=== PATIENT | female | born 1935 | race African-American/Black ===

== ENCOUNTER 2018-04-23 07:20 | Emergency (ER) | payer MEDICARE, OTHER ==
[~2018-04-23] VITALS: Ht 167.6 cm; Wt 85.0 kg
[~2018-04-23 07:20] MED LIST: ASPI-1159 PO; ATEN100T PO; ATOR40TA70 PO; CALC-30 PO; FURO-152 PO; GLUC15006 PO; HYDR100T26 PO; LEVO125T8 PO; LOSA100T14 PO; MULT-1146 PO; NIAC500T2 PO; OCD PO; OMEG1CAP66 PO; TIOT18CA3 IH
[2018-04-23] MEDS ORDERED: NITROGLYCERIN 0.4MG TABLET SL SL PRN (08:00)
[2018-04-23] MEDS ORDERED: ASPIRIN 325MG EC TABLET PO ONE (08:00)
[2018-04-23 08:21] LABS: HEMATOCRIT. 25.6 % (36.0-48.0); HEMOGLOBIN. 7.9 g/dL (12.0-16.0); MEAN CORPUSCULAR HEMOGLOBIN 24.4 pg (28.0-32.0); MEAN CORPUSCULAR VOLUME 78.9 fL (81.0-99.0); MEAN PLATELET VOLUME 8.7 fl (7.4-10.4); PLATELET 228 x1000/uL (130-400); RED BLOOD CELL COUNT 3.24 mill/uL (4.2-5.4); RED CELL DISTRIBUTION WIDTH 17.4 % (11.6-14.6)
[2018-04-23 08:29] LABS: CHLORIDE 105 mEq/L (98-107)
[2018-04-23 08:33] LABS: ETHANOL BLOOD < 10 mg/dL
[2018-04-23 08:43] LABS: D-DIMER 1.95 mg/L FEU (<0.50); INR 1.1; PROTHROMBIN TIME 11.3 sec (9.4-11.6)
[2018-04-23 09:11] LABS: BG BASE EXCESS 4.1 mmol/L (-2.0-2.0); BG CARBOXYHEMOGLOBIN 0.9 % (0.5-1.5); BG DEOXYHEMOGLOBIN 3.5 % (0.0-5.0); BG FRACTION INSPIRED OXYGEN 28; BG HCO3 ACT 31.2 mmol/L (22.0-26.0); BG METHEMOGLOBIN 0.2 % (0.0-1.5); BG OXYGEN SATURATION 96.5 % (92.0-98.5); BG OXYHEMOGLOBIN 95.4 % (94.0-97.0); BG PCO2 62.9 mmHg (35.0-45.0); BG PH 7.314 (7.350-7.450); BG PO2 90.6 mmHg (75.0-100.0); BG SAMPLE SITE RIGHT RADIAL; BG TOTAL HEMOGLOBIN 8.7 g/dL (12.0-18.0); BG VENT MODE NASAL CANNULA
[2018-04-23 10:14] LABS: PLATELET ESTIMATE NORMAL
[2018-04-23 10:40] LABS: CLARITY URINE CLOUDY (CLEAR); COLOR URINE YELLOW (YELLOW); KETONES URINE NEGATIVE (NEGATIVE); LEUKOCYTE ESTERASE URINE TRACE (NEGATIVE); NITRITE URINE NEGATIVE (NEGATIVE); OCCULT BLOOD URINE 3+ (NEGATIVE); PROTEIN URINE 4+ (NEGATIVE); SPECIFIC GRAVITY URINE 1.018 (1.005-1.030); UROBILINOGEN URINE 0.2 E.U./dL (0.2-1.0)
[2018-04-23 10:59] LABS: *AMPHETAMINES SCREEN URINE NEGATIVE (NEGATIVE); *BARBITURATES SCREEN URINE NEGATIVE (NEGATIVE); *BENZODIAZEPINES SCREEN URINE NEGATIVE (NEGATIVE); *COCAINE SCREEN URINE NEGATIVE (NEGATIVE)
[2018-04-23 11:00] LABS: CANNABINOID URINE SCREEN NEGATIVE (NEGATIVE); METHADONE URINE SCREEN NEGATIVE (NEGATIVE); OPIATES URINE SCREEN NEGATIVE (NEGATIVE); PHENCYCLIDINE URINE SCREEN NEGATIVE (NEGATIVE)
[2018-04-23] MEDS ORDERED: FUROSEMIDE 40MG/4ML VIAL IVP NR (11:30)
[2018-04-23] MEDS ORDERED: CEFTRIAXONE 1 G PREMIX 50 ML IV ONE (13:00)
[2018-04-23 15:05] VITALS: BP 174/71
== END 2018-04-23 15:34 | disposition short-term general hospital (02) ==
LOC: ER 07:20 → CANRESERV 10:09 → ENRESERV 10:09 → EDBEDREQ 11:18 → ER 15:34 → CANBEDREQ 15:54
DX: I11.0 Hypertensive heart disease with heart failure (principal); I50.9 Heart failure, unspecified; I44.0 Atrioventricular block, first degree; D64.9 Anemia, unspecified; R79.1 Abnormal coagulation profile; E78.00 Pure hypercholesterolemia, unspecified; R01.1 Cardiac murmur, unspecified; J44.9 Chronic obstructive pulmonary disease, unspecified; Z88.2 Allergy status to sulfonamides; Z79.899 Other long term (current) drug therapy; Z79.82 Long term (current) use of aspirin
CPT/HCPCS: 36415; 36600; 71045; 80053; 80305; 81003; 82375; 82805; 82962; 83605; 83690; 83880; 84484; 85025; 85379; 85610; 93005; 96365; 96375; 99285; G0482; J0696; J1940